=== PATIENT | female | born 1990 | race Caucasian/White ===

== ENCOUNTER 2017-03-01 07:11 | Emergency (ER) | payer MEDICAID, OTHER ==
[~2017-03-01] VITALS: Ht 162.6 cm; Wt 48.0 kg
[2017-03-01] VITALS (11 sets, daily range): BP systolic 86–131; BP diastolic 55–84; PULSE 64–128; RESP 12–18; TEMP 97.9–98.6; O2SAT 98–100
[~2017-03-01 07:11] MED LIST: HYDR50TA94 PO; SERO150T PO; XANA1TAB6 PO
[2017-03-01] MEDS ORDERED: NALOXONE HCL 0.4 MG/ML AMP IV PUSH ONE (07:30)
--- NOTE | 2017-03-01 07:52 | PD ---
HPI Chief Complaint: OD/ Ingestion Time Seen by Provider: 07:27 Travel History International Travel<30 days: No Contact w/Intl Traveler<30days: No Traveled to known affect area: No History of Present Illness HPI This is a 27-year-old female with unknown past history, presents here under Peres act. Patient apparently had been using alcohol and reported Xanax. She also reportedly scratched herself on the neck. He reported self mutilation to the neck. The patient reports she scratched herself. According to the [facility]' s deputy, she was awake and alert when he initially arrived on scene. When [facility] came on they cleared her. En route to the hospital she became more sleepy and somnolent. There is report that her boyfriend reported that she took Xanax right before the vp treasurer arrived. She chronically takes Xanax. [facility] Past Medical History Medical History: Unable to Obtain Blood Disorders: No Bipolar Disorder: Yes Cancer: No Diminished Hearing: No Gastrointestinal Disorders: Yes (GASTROPARESIS) Psychiatric: Yes (panic attacks) Immunizations Current: No Seizures: No Thyroid Disease: No Ulcer: No ?: Unknown Past Surgical History Surgical History: Unable to Obtain Section: Yes (twice) Other Surgery: No Social History Alcohol Use: Yes Tobacco Use: Yes Substance Use: Yes (on xanax, cocaine, and alcohol on 03/01/[address] [facility]) Allergies-Medications (Allergen,Severity, Reaction): Coded Allergies: metoclopramide (Unverified Allergy, Severe, FACIAL TWITCHING, 03/01/17) penicillin G (Unverified Adverse Reaction, Severe, DOESN'T KNOW, 03/01/17) Reported Meds & Prescriptions Reported Meds & Active Scripts Active Active Prescriptions or Reported Medications Unobtainable Review of Systems ROS Limitations: Clinical Condition, Intoxication (unable to obtain secondary to patient's intoxicated and somnolent state) Except as stated in HPI: all other systems reviewed are Neg Skin: Positive Other (scratches to the bilateral neck.) Physical Exam Narrative GENERAL: Developed well-nourished female in no acute respiratory distress. The patient is breathing at a rate of 12. Her O2 sats are 100%. SKIN: Focused skin assessment warm/dry. She has gradually is to her bilateral next. There is no deep lacerations. There is no active bleeding. There is dried blood noted to the bilateral lateral neck area. HEAD: Atraumatic. Normocephalic. EYES: Pupils equal and round. No scleral icterus. No injection or drainage. ENT: No nasal bleeding or discharge. Mucous membranes pink and moist. NECK: Trachea midline. No JVD. Scratches as above. CARDIOVASCULAR: Regular rate and rhythm. No murmur appreciated. RESPIRATORY: No accessory muscle use. Clear to auscultation. Breath sounds equal bilaterally. GASTROINTESTINAL: Abdomen soft, non-tender, nondistended. Hepatic and splenic margins not palpable. MUSCULOSKELETAL: No obvious deformities. No clubbing. No cyanosis. No edema. NEUROLOGICAL: Asleep in arousable to deep stimulation.. No obvious cranial nerve deficits. Motor grossly within normal limits. Slurred speech. Data Data Last Documented VS Vital Signs Date Time Temp Pulse Resp B/P (MAP) Pulse Ox O2 Delivery O2 Flow Rate FiO2 03/01/17 09:48 68 16 97/57 (70) 100 Nasal Cannula 2.00 03/01/17 07:46 97.9 Orders Orders Complete Blood Count With Diff (03/01/17 07:27) Comprehensive Metabolic Panel (03/01/17 07:27) Ed Urine Pregnancytest Poc (03/01/17 07:27) Electrocardiogram (03/01/17 07:27) Cath For Specimen (03/01/17 07:27) Psych Screen (03/01/17 07:27) Restraints Non-Violent MELVIN.Q3H (03/01/17 07:27) Drug Screen, Random Urine (03/01/17 07:27) Alcohol (Ethanol) (03/01/17 07:27) Salicylates (Aspirin) (03/01/17 07:27) Tylenol (Acetaminophen) (03/01/17 07:27) Naloxone Inj (Narcan Inj) (03/01/17 07:30) Tetanus/Diphtheria Tox Adult (Tetanus/Di (03/01/17 08:15) Labs Laboratory Tests Test 03/01/17 07:40 White Blood Count 6.8 TH/MM3 Red Blood Count 4.82 MIL/MM3 Hemoglobin 13.2 GM/DL Hematocrit 40.2 % Mean Corpuscular Volume 83.5 FL Mean Corpuscular Hemoglobin 27.3 PG Mean Corpuscular Hemoglobin Concent 32.7 % Red Cell Distribution Width 18.3 % Platelet Count 196 TH/MM3 Mean Platelet Volume 7.9 FL Neutrophils (%) (Auto) 66.9 % Lymphocytes (%) (Auto) 22.4 % Monocytes (%) (Auto) 4.7 % Eosinophils (%) (Auto) 5.0 % Basophils (%) (Auto) 1.0 % Neutrophils # (Auto) 4.6 TH/MM3 Lymphocytes # (Auto) 1.5 TH/MM3 Monocytes # (Auto) 0.3 TH/MM3 Eosinophils # (Auto) 0.3 TH/MM3 Basophils # (Auto) 0.1 TH/MM3 CBC Comment AUTO DIFF Differential Comment AUTO DIFF CONFIRMED Blood Urea Nitrogen 10 MG/DL Creatinine 0.96 MG/DL Random Glucose 81 MG/DL Total Protein 7.9 GM/DL Albumin 3.9 GM/DL Calcium Level 8.5 MG/DL Alkaline Phosphatase 90 U/L Aspartate Amino Transf (AST/SGOT) 21 U/L Alanine Aminotransferase (ALT/SGPT) 18 U/L Total Bilirubin 0.3 MG/DL Sodium Level 138 MEQ/L Potassium Level 3.9 MEQ/L Chloride Level 102 MEQ/L Carbon Dioxide Level 27.0 MEQ/L Anion Gap 9 MEQ/L Estimat Glomerular Filtration Rate 69 ML/MIN Salicylates Level 2.5 MG/DL Urine Opiates Screen NEG Acetaminophen Level LESS THAN 2.0 MCG/ML Urine Barbiturates Screen NEG Urine Amphetamines Screen NEG Urine Benzodiazepines Screen POS Urine Cocaine Screen POS Urine Cannabinoids Screen POS Ethyl Alcohol Level 46 MG/DL MDM Medical Decision Making Medical Screen Exam Complete: Yes Emergency Medical Condition: Yes Differential Diagnosis Substance-induced mood disorder versus electrolyte abnormality versus intoxication. Narrative Course 27-year-old female presents under Peres act after she reportedly was self mutilating herself by scratchiness of the neck. Patient has superficial scratches to her bilateral neck. There is no deep laceration that requires suturing. The patient's alcohol level is 46. Her urine tox is positive for benzodiazepines, cocaine, marijuana. Patient likely has substance induced mood disorder. She'll be medically cleared for psychiatric evaluation. Diagnosis Primary Impression: Substance induced mood disorder Additional Impressions: Polysubstance abuse bilateral neck abrasion/superficial lacerations medically clear Scripts Unable to Obtain Active Prescriptions or Reported Meds Nino Freitas MD Mar 01, 2017 07:52
[2017-03-01 07:56] LABS: AUTOMATED NEUTROPHIL # 4.6 TH/MM3 (1.8-7.7); BASOPHIL # 0.1 TH/MM3 (0-0.2); EOSINOPHIL # 0.3 TH/MM3 (0-0.4); HEMATOCRIT 40.2 % (35.0-46.0); HEMO FLAGS AUTO DIFF; LYMPH % 22.4 % (9.0-44.0); LYMPHOCYTE # 1.5 TH/MM3 (1.0-4.8); MEAN CELL VOLUME 83.5 FL (80.0-100.0); MEAN CORPUSCULAR HEMOGLOBIN 27.3 PG (27.0-34.0); MEAN CORPUSCULAR HGB CONC 32.7 % (32.0-36.0); MONO % 4.7 % (0.0-8.0); NEUT % 66.9 % (16.0-70.0); PLATELET COUNT 196 TH/MM3 (150-450); RED BLOOD COUNT 4.82 MIL/MM3 (4.00-5.30); RED CELL DISTRIBUTION WIDTH 18.3 % (11.6-17.2); WHITE BLOOD COUNT 6.8 TH/MM3 (4.0-11.0)
[2017-03-01 08:12] LABS: ANION GAP 9 MEQ/L (5-15)
[2017-03-01 08:14] LABS: ALKALINE PHOSPHATASE 90 U/L (45-117); ALT (GPT) 18 U/L (10-53); AST (GOT) 21 U/L (15-37); BLOOD UREA NITROGEN 10 MG/DL (7-18); CHLORIDE 102 MEQ/L (98-107); GLOMERULAR FILTRATION RATE 69 ML/MIN (>89); POTASSIUM 3.9 MEQ/L (3.5-5.1); SODIUM (NA) 138 MEQ/L (136-145); TOTAL BILIRUBIN ADULT 0.3 MG/DL (0.2-1.0)
[2017-03-01] MEDS ORDERED: TETANUS/DIPHTHERIA TOXOID ADULT 0.5 ML VIAL IM ONE (08:15)
[2017-03-01 08:16] LABS: ACETAMINOPHEN LESS THAN 2.0 MCG/ML (10.0-30.0); ALCOHOL 46 MG/DL (0-5)
[2017-03-01 08:58] LABS: SCAN/DIFF AUTO DIFF CONFIRMED
[2017-03-01] MEDS ORDERED: ALPR1TAB3 PO (12:55)
--- NOTE | 2017-03-01 14:18 | EKG ---
Date Performed: 03/01/2017 Time Performed: 07:31:03 PTAGE: 27 years EKG: Sinus rhythm NORMAL ECG NO PREVIOUS TRACING DOCTOR: Eloy Whiting Interpretating Date/Time 03/01/2017 14:16:49
[2017-03-01] MEDS ORDERED: OLANZapine IM 10 MG VIAL IM ONE (19:45)
[2017-03-01] MEDS ORDERED: diphenhydrAMINE HCL 50 MG/ML VIAL IM ONE (19:45)
--- NOTE | 2017-03-01 20:58 | PD ---
History of Present Illness Chief Complaint: OD/ Ingestion Time Seen by Provider: 19:00 Travel History International Travel<30 Days: No Contact w/Intl Traveler<30days: No Known affected area: No Legal Status Legal Status: [employer] History of Present Illness: History of Present Illness This serves as a face to face initial for restraints. This is a 27-year-old female with unknown past history, presents here under Peres act. Patient apparently had been using alcohol and reported Xanax. She also reportedly scratched herself on the neck. He reported self mutilation to the neck. The patient reports she scratched herself. According to the [facility]' s deputy, she was awake and alert when he initially arrived on scene. When [facility] came on they cleared her. En route to the hospital she became more sleepy and somnolent. There is report that her boyfriend reported that she took Xanax right before the needle molder arrived. She chronically takes Xanax. Patient is alert and oriented. Patient was intrusive and antagonizing other patients in J pod. required multiple verbal redirection. She was asked several times to move to her room while staff was attempting to deescalate another patient. patient refused to follow staff direction to remain in her room until evaluated for safety. Radha refused to follow staff redirection multiple times and was making verbal threats. She was escorted to her room and became agitated and attempting to kick and strike staff members. [facility] Past Medical History Medical History: Unable to Obtain Blood Disorders: No Bipolar Disorder: Yes Cancer: No Diminished Hearing: No Gastrointestinal Disorders: Yes (GASTROPARESIS) Psychiatric: Yes (panic attacks) Immunizations Current: No Seizures: No Thyroid Disease: No Ulcer: No ?: Unknown Past Surgical History Surgical History: Unable to Obtain Section: Yes (twice) Other Surgery: No Psychiatric History Psychiatric History Hx Psychiatric Treatment: unable to obtain Social History Hx Alcohol Use: Yes Hx Tobacco Use: Yes Hx Substance Use: Yes (on xanax, cocaine, and alcohol on 03/01/17 per [facility]) Allergies-Medications (Allergen,Severity, Reaction): Coded Allergies: metoclopramide (Unverified Allergy, Severe, FACIAL TWITCHING, 03/01/17) penicillin G (Unverified Adverse Reaction, Severe, DOESN'T KNOW, 03/01/17) Reported Meds & Prescriptions Reported Meds & Active Scripts Active Reported Alprazolam 1 Mg Tab 1 Mg PO BID PRN Review of Systems ROS Limitations: Combative Mental Status Examination Consciousness: Alert Appearance: Appropriate Speech: Unremarkable Thought Content: Other (unbale to test) Thought Associations: Other (unable to test) Language: Other (clear and logical ) Fund of Knowledge: Other (unable to test) Hallucination Type: Other (does not appear to be respondign to internal stimuli ) Attention and Concentration: Good Suicidal Plan/Intention Remark unable to asses Insight: Poor Judgment: Poor Affect: Oppositional Mood: Oppositional, Other (agitated) Motor Activity: Normal gait MDM Medical Decision Making Medical Record Reviewed: Yes Assessment/Plan This is a 27-year-old female with unknown past history, presents here under Peres act. Patient apparently had been using alcohol and reported Xanax. She also reportedly scratched herself on the neck. He reported self mutilation to the neck. The patient reports she scratched herself. According to the Human Resource Statistician' s deputy, she was awake and alert when he initially arrived on scene. When [facility] came on they cleared her. En route to the hospital she became more sleepy and somnolent. There is report that her boyfriend reported that she took Xanax right before the needle molder arrived. She chronically takes Xanax. patient required restraints for potential of harm to self and others. Orders Orders Complete Blood Count With Diff (03/01/17 07:27) Comprehensive Metabolic Panel (03/01/17 07:27) Ed Urine Pregnancytest Poc (03/01/17 07:27) Electrocardiogram (03/01/17 07:27) Cath For Specimen (03/01/17 07:27) Psych Screen (03/01/17 07:27) Restraints Non-Violent MELVIN.Q3H (03/01/17 07:27) Drug Screen, Random Urine (03/01/17 07:27) Alcohol (Ethanol) (03/01/17 07:27) Salicylates (Aspirin) (03/01/17 07:27) Tylenol (Acetaminophen) (03/01/17 07:27) Naloxone Inj (Narcan Inj) (03/01/17 07:30) Tetanus/Diphtheria Tox Adult (Tetanus/Di (03/01/17 08:15) Restraints Violent (03/01/17 19:35) Olanzapine Inj (Zyprexa Inj) (03/01/17 19:45) Diphenhydramine Inj (Benadryl Inj) (03/01/17 19:45) Results Vital Signs Date Time Temp Pulse Resp B/P (MAP) Pulse Ox O2 Delivery O2 Flow Rate FiO2 03/01/17 19:52 98.6 128 18 131/79 (96) 98 Room Air 03/01/17 16:10 68 16 103/60 (74) 98 Nasal Cannula 2.00 03/01/17 14:00 68 16 86/55 (65) 100 Room Air 03/01/17 12:24 64 16 97/65 (76) 100 Nasal Cannula 03/01/17 10:45 74 16 119/80 (93) 100 Nasal Cannula 2.00 03/01/17 09:48 68 16 97/57 (70) 100 Nasal Cannula 2.00 03/01/17 09:06 73 16 111/79 (90) 100 Nasal Cannula 2.00 03/01/17 08:00 73 13 98/60 (73) 100 Nasal Cannula 03/01/17 07:46 97.9 74 12 96/56 (69) 100 Nasal Cannula 2.00 03/01/17 07:20 74 12 104/64 (77) 98 Laboratory Tests Test 03/01/17 07:40 White Blood Count 6.8 Red Blood Count 4.82 Hemoglobin 13.2 Hematocrit 40.2 Mean Corpuscular Volume 83.5 Mean Corpuscular Hemoglobin 27.3 Mean Corpuscular Hemoglobin Concent 32.7 Red Cell Distribution Width 18.3 Platelet Count 196 Mean Platelet Volume 7.9 Neutrophils (%) (Auto) 66.9 Lymphocytes (%) (Auto) 22.4 Monocytes (%) (Auto) 4.7 Eosinophils (%) (Auto) 5.0 Basophils (%) (Auto) 1.0 Neutrophils # (Auto) 4.6 Lymphocytes # (Auto) 1.5 Monocytes # (Auto) 0.3 Eosinophils # (Auto) 0.3 Basophils # (Auto) 0.1 CBC Comment AUTO DIFF Differential Comment AUTO DIFF CONFIRMED Blood Urea Nitrogen 10 Creatinine 0.96 Random Glucose 81 Total Protein 7.9 Albumin 3.9 Calcium Level 8.5 Alkaline Phosphatase 90 Aspartate Amino Transf (AST/SGOT) 21 Alanine Aminotransferase (ALT/SGPT) 18 Total Bilirubin 0.3 Sodium Level 138 Potassium Level 3.9 Chloride Level 102 Carbon Dioxide Level 27.0 Anion Gap 9 Estimat Glomerular Filtration Rate 69 Salicylates Level 2.5 Urine Opiates Screen NEG Acetaminophen Level LESS THAN 2.0 Urine Barbiturates Screen NEG Urine Amphetamines Screen NEG Urine Benzodiazepines Screen POS Urine Cocaine Screen POS Urine Cannabinoids Screen POS Ethyl Alcohol Level 46 Diagnosis Primary Impression: Substance induced mood disorder Additional Impressions: Polysubstance abuse bilateral neck abrasion/superficial lacerations medically clear Problem Qualifiers Odalis Mckenna [facility] Mar 01, 2017 20:58
--- NOTE | 2017-03-02 00:46 | PD ---
Physical Exam Date Seen by Provider: Mar 02, 2017 Time Seen by Provider: 00:45 Narrative For full history and physical examination please see previous provider's notes. Data Data Last Documented VS Vital Signs Date Time Temp Pulse Resp B/P (MAP) Pulse Ox O2 Delivery O2 Flow Rate FiO2 03/01/17 22:46 86 16 128/84 (99) 98 Room Air 03/01/17 19:52 98.6 03/01/17 16:10 2.00 Orders Orders Complete Blood Count With Diff (03/01/17 07:27) Comprehensive Metabolic Panel (03/01/17 07:27) Ed Urine Pregnancytest Poc (03/01/17 07:27) Electrocardiogram (03/01/17 07:27) Cath For Specimen (03/01/17 07:27) Psych Screen (03/01/17 07:27) Restraints Non-Violent MELVIN.Q3H (03/01/17 07:27) Drug Screen, Random Urine (03/01/17 07:27) Alcohol (Ethanol) (03/01/17 07:27) Salicylates (Aspirin) (03/01/17 07:27) Tylenol (Acetaminophen) (03/01/17 07:27) Naloxone Inj (Narcan Inj) (03/01/17 07:30) Tetanus/Diphtheria Tox Adult (Tetanus/Di (03/01/17 08:15) Restraints Violent (03/01/17 19:35) Olanzapine Inj (Zyprexa Inj) (03/01/17 19:45) Diphenhydramine Inj (Benadryl Inj) (03/01/17 19:45) Labs Laboratory Tests Test 03/01/17 07:40 White Blood Count 6.8 TH/MM3 Red Blood Count 4.82 MIL/MM3 Hemoglobin 13.2 GM/DL Hematocrit 40.2 % Mean Corpuscular Volume 83.5 FL Mean Corpuscular Hemoglobin 27.3 PG Mean Corpuscular Hemoglobin Concent 32.7 % Red Cell Distribution Width 18.3 % Platelet Count 196 TH/MM3 Mean Platelet Volume 7.9 FL Neutrophils (%) (Auto) 66.9 % Lymphocytes (%) (Auto) 22.4 % Monocytes (%) (Auto) 4.7 % Eosinophils (%) (Auto) 5.0 % Basophils (%) (Auto) 1.0 % Neutrophils # (Auto) 4.6 TH/MM3 Lymphocytes # (Auto) 1.5 TH/MM3 Monocytes # (Auto) 0.3 TH/MM3 Eosinophils # (Auto) 0.3 TH/MM3 Basophils # (Auto) 0.1 TH/MM3 CBC Comment AUTO DIFF Differential Comment AUTO DIFF CONFIRMED Blood Urea Nitrogen 10 MG/DL Creatinine 0.96 MG/DL Random Glucose 81 MG/DL Total Protein 7.9 GM/DL Albumin 3.9 GM/DL Calcium Level 8.5 MG/DL Alkaline Phosphatase 90 U/L Aspartate Amino Transf (AST/SGOT) 21 U/L Alanine Aminotransferase (ALT/SGPT) 18 U/L Total Bilirubin 0.3 MG/DL Sodium Level 138 MEQ/L Potassium Level 3.9 MEQ/L Chloride Level 102 MEQ/L Carbon Dioxide Level 27.0 MEQ/L Anion Gap 9 MEQ/L Estimat Glomerular Filtration Rate 69 ML/MIN Salicylates Level 2.5 MG/DL Urine Opiates Screen NEG Acetaminophen Level LESS THAN 2.0 MCG/ML Urine Barbiturates Screen NEG Urine Amphetamines Screen NEG Urine Benzodiazepines Screen POS Urine Cocaine Screen POS Urine Cannabinoids Screen POS Ethyl Alcohol Level 46 MG/DL [facility] Medical Record Reviewed: Yes Supervised Visit with MIGUELITO: No Narrative Course Patient initially presented to the emergency Department under Peres act for psychiatric evaluation. She was seen and evaluated by an emergency department physician and then medically cleared. She was then evaluated by psychiatric nurse practitioner. At this time patient will be discharged to the [facility]. Diagnosis Primary Impression: Substance induced mood disorder Additional Impressions: Polysubstance abuse bilateral neck abrasion/superficial lacerations medically clear Referrals: [facility] Patient Instructions: General Instructions Additional Instruction: Avoid illicit drug use Follow-up with her primary doctor Med/Other Pt SpecificInfo: No Change to Meds Disposition: 64 DISC TO [facility] Condition: Stable Haley Ha Ann [employer] Mar 02, 2017 00:46
== END 2017-03-02 01:33 ==
LOC: NEPC 07:11 → NEPJ 03-02 01:33
DX: F19.14 Other psychoactive substance abuse with psychoactive substance-induced mood disorder (principal); S10.91XA Abrasion of unspecified part of neck, initial encounter; K31.84 Gastroparesis; F31.9 Bipolar disorder, unspecified; Y28.8XXA Contact with other sharp object, undetermined intent, initial encounter; Z72.0 Tobacco use; Z23 Encounter for immunization
CPT/HCPCS: 80053; 80307; 84703; 85025; 90471; 90714; 93005; 96372; 96374; 99285; J1200; J2310

== ENCOUNTER 2017-05-27 15:14 | Emergency (ER) | payer OTHER ==
[~2017-05-27] VITALS: Ht 152.4 cm; Wt 45.0 kg
[~2017-05-27 15:14] MED LIST changes: +ALPR1TAB3 PO; -HYDR50TA94 PO; -SERO150T PO; -XANA1TAB6 PO
[2017-05-27 15:24] VITALS: BP 135/95; PULSE 63; RESP 18; O2SAT 100
--- NOTE | 2017-05-27 15:30 | PD ---
HPI Chief Complaint: PERES ACT/PSYCH Time Seen by Provider: 15:27 Travel History International Travel<30 days: No Contact w/Intl Traveler<30days: No Traveled to known affect area: No History of Present Illness HPI 27-year-old female brought in by police under a Peres act. Patient states she was arrested 2 days ago, and spent the last 2 days in longterm. Patient states history of narcotic abuse, with recent abdominal discomfort which she attributes to withdrawal. When she was medically cleared for incarceration, she was told she was . Patient states however her last period was May 02 to the . She currently denies any abdominal pain or vaginal bleeding. She was taken to [facility] for continued detox, but when they heard she was , and may have attempted hanging herself she was brought here for medical clearance and psychiatric evaluation. Patient however denies suicidal or homicidal ideation at this time. She has no significant pain complaints at this time. Patient is allergic to penicillin and metoclopramide. PFSH Past Medical History Blood Disorders: No Bipolar Disorder: Yes Cancer: No Diminished Hearing: No Gastrointestinal Disorders: Yes (GASTROPARESIS) Psychiatric: Yes (panic attacks) Immunizations Current: No Seizures: No Thyroid Disease: No Ulcer: No Past Surgical History Section: Yes (twice) Other Surgery: No Social History Alcohol Use: Yes Tobacco Use: Yes Substance Use: Yes (on xanax, cocaine, and alcohol on 03/01/17 per senior technical project manager) Allergies-Medications (Allergen,Severity, Reaction): Coded Allergies: metoclopramide (Unverified Allergy, Severe, FACIAL TWITCHING, 03/01/17) penicillin G (Unverified Adverse Reaction, Severe, DOESN'T KNOW, 03/01/17) Reported Meds & Prescriptions Reported Meds & Active Scripts Active Reported Alprazolam 1 Mg Tab 1 Mg PO BID PRN Review of Systems Except as stated in HPI: all other systems reviewed are Neg General / Constitutional: No: Fever Eyes: No: Visual changes HENT: No: Headaches Cardiovascular: No: Chest Pain or Discomfort Respiratory: No: Shortness of Breath Gastrointestinal: No: Nausea, Vomiting, Diarrhea, Abdominal Pain Genitourinary: No: Dysuria Musculoskeletal: No: Pain Skin: No Rash Neurologic: No: Weakness Psychiatric: Positive: Substance Abuse, No: Depression, Suicidal Ideations, Homicidal Ideation Endocrine: No: Polydipsia Hematologic/Lymphatic: No: Easy Bruising Physical Exam Narrative GENERAL: Patient appears in no obvious distress. SKIN: Warm and dry. Patient is notable old puncture wounds consistent with her IV drug history. Times of cellulitis or other issues at this time. HEAD: Atraumatic. Normocephalic. EYES: Pupils equal and round. No scleral icterus. No injection or drainage. ENT: No nasal bleeding or discharge. Mucous membranes pink and moist. Pharynx is clear. Airway is patent. NECK: Trachea midline. Supple and nontender. CARDIOVASCULAR: Regular rate and rhythm. RESPIRATORY: No accessory muscle use. Clear to auscultation. Breath sounds equal bilaterally. GASTROINTESTINAL: Abdomen soft, non-tender, nondistended. Hepatic and splenic margins not palpable. MUSCULOSKELETAL: Extremities without clubbing, cyanosis, or edema. No obvious deformities. NEUROLOGICAL: Awake and alert. No obvious cranial nerve deficits. Motor grossly within normal limits. Five out of 5 muscle strength in the arms and legs. Normal speech. PSYCHIATRIC: Appropriate mood and affect; insight and judgment normal. Data Data Last Documented VS Vital Signs Date Time Temp Pulse Resp B/P (MAP) Pulse Ox O2 Delivery O2 Flow Rate FiO2 05/27/17 15:24 63 18 135/95 (108) 100 Orders Orders Complete Blood Count With Diff (05/27/17 15:36) Comprehensive Metabolic Panel (05/27/17 15:36) Urinalysis - C+S If Indicated (05/27/17 15:36) Ed Urine Pregnancytest Poc (05/27/17 15:36) Beta Hcg (Quant/Titer) (05/27/17 15:36) Psych Screen (05/27/17 15:36) Drug Screen, Random Urine (05/27/17 15:36) Labs Laboratory Tests Test 05/27/17 15:45 White Blood Count 6.6 TH/MM3 Red Blood Count 4.55 MIL/MM3 Hemoglobin 13.3 GM/DL Hematocrit 39.6 % Mean Corpuscular Volume 87.1 FL Mean Corpuscular Hemoglobin 29.3 PG Mean Corpuscular Hemoglobin Concent 33.7 % Red Cell Distribution Width 14.0 % Platelet Count 216 TH/MM3 Mean Platelet Volume 8.1 FL Neutrophils (%) (Auto) 53.0 % Lymphocytes (%) (Auto) 38.9 % Monocytes (%) (Auto) 6.2 % Eosinophils (%) (Auto) 1.4 % Basophils (%) (Auto) 0.5 % Neutrophils # (Auto) 3.5 TH/MM3 Lymphocytes # (Auto) 2.6 TH/MM3 Monocytes # (Auto) 0.4 TH/MM3 Eosinophils # (Auto) 0.1 TH/MM3 Basophils # (Auto) 0.0 TH/MM3 CBC Comment DIFF FINAL Differential Comment Urine Color LIGHT-YELLOW Urine Turbidity HAZY Urine pH 6.0 Urine Specific [place] 1.008 Urine Protein NEG mg/dL Urine Glucose (UA) NEG mg/dL Urine Ketones NEG mg/dL Urine Occult Blood NEG Urine Nitrite NEG Urine Bilirubin NEG Urine Urobilinogen LESS THAN 2.0 MG/DL Urine Leukocyte Esterase NEG Urine RBC 1 /hpf Urine WBC 1 /hpf Urine Squamous Epithelial Cells 7 /hpf Urine Bacteria RARE /hpf Urine Mucus FEW /lpf Microscopic Urinalysis Comment CULT NOT INDICATED Blood Urea Nitrogen 7 MG/DL Creatinine 0.74 MG/DL Random Glucose 84 MG/DL Total Protein 6.9 GM/DL Albumin 3.6 GM/DL Calcium Level 8.6 MG/DL Alkaline Phosphatase 64 U/L Aspartate Amino Transf (AST/SGOT) 31 U/L Alanine Aminotransferase (ALT/SGPT) 44 U/L Total Bilirubin 0.2 MG/DL Sodium Level 138 MEQ/L Potassium Level 3.6 MEQ/L Chloride Level 103 MEQ/L Carbon Dioxide Level 30.3 MEQ/L Anion Gap 5 MEQ/L Estimat Glomerular Filtration Rate 93 ML/MIN Human Chorionic Gonadotropin, Quant 393 MIU/ML [facility] Medical Decision Making Medical Screen Exam Complete: Yes Emergency Medical Condition: Yes Differential Diagnosis History of IV drug use. Diagnosis of early . Need for detox. Narrative Course Patient is medically stable at time of exam. Psychiatric labs ordered including a urine which is positive. Serum hCG is added. Patient is discussed with Dr. Briceno. Patient is felt to be medically stable for psychiatric evaluation. Diagnosis Primary Impression: Medical clearance for psychiatric admission Additional Impression: Qualified Codes: Z3A.01 - Less than 8 weeks gestation of Condition: Stable Aram Faust May 27, 2017 15:30
[2017-05-27 16:30] LABS: AUTOMATED NEUTROPHIL # 3.5 TH/MM3 (1.8-7.7); BASOPHIL % 0.5 % (0.0-2.0); EOSINOPHIL # 0.1 TH/MM3 (0-0.4); EOSINOPHIL % 1.4 % (0.0-4.0); HEMATOCRIT 39.6 % (35.0-46.0); HEMOGLOBIN 13.3 GM/DL (11.6-15.3); LYMPH % 38.9 % (9.0-44.0); LYMPHOCYTE # 2.6 TH/MM3 (1.0-4.8); MEAN CELL VOLUME 87.1 FL (80.0-100.0); MEAN CORPUSCULAR HEMOGLOBIN 29.3 PG (27.0-34.0); MEAN CORPUSCULAR HGB CONC 33.7 % (32.0-36.0); MEAN PLATELET VOLUME 8.1 FL (7.0-11.0); MONO % 6.2 % (0.0-8.0); MONOCYTE # 0.4 TH/MM3 (0-0.9); PLATELET COUNT 216 TH/MM3 (150-450); RED BLOOD COUNT 4.55 MIL/MM3 (4.00-5.30); WHITE BLOOD COUNT 6.6 TH/MM3 (4.0-11.0)
[2017-05-27 16:43] LABS: ALBUMIN 3.6 GM/DL (3.4-5.0); ALT (GPT) 44 U/L (10-53); AST (GOT) 31 U/L (15-37); BICARBONATE 30.3 MEQ/L (21.0-32.0); BLOOD UREA NITROGEN 7 MG/DL (7-18); CALCIUM 8.6 MG/DL (8.5-10.1); CHLORIDE 103 MEQ/L (98-107); CREATININE 0.74 MG/DL (0.50-1.00); GLOMERULAR FILTRATION RATE 93 ML/MIN (>89); GLUCOSE,RANDOM 84 MG/DL (74-106); SODIUM (NA) 138 MEQ/L (136-145)
[2017-05-27 16:46] LABS: ALKALINE PHOSPHATASE 64 U/L (45-117); TOTAL BILIRUBIN ADULT 0.2 MG/DL (0.2-1.0); TOTAL PROTEIN 6.9 GM/DL (6.4-8.2)
[2017-05-27 16:57] LABS: BACTERIA, URINE RARE /hpf; BILIRUBIN, URINE NEG (NEG); BLOOD, URINE NEG (NEG); GLUCOSE,URINE NEG (NEG); KETONE, URINE NEG (NEG); MUCUS URINE FEW /lpf (OCC); NITRITE,URINE NEG (NEG); SQUAMOUS EPITHELIAL CELL URINE 7 /hpf (0-5); URINE COLOR LIGHT-YELLOW (YELLW/STRAW); URINE LEUKOCYTE ESTERASE NEG (NEG)
[2017-05-27 23:46] VITALS: BP 123/64; PULSE 78; RESP 16; TEMP 98.4; O2SAT 99
[2017-05-28 06:46] VITALS: BP 114/65; PULSE 90; RESP 17; TEMP 98.8; O2SAT 99
[2017-05-28 09:20] VITALS: BP 117/71; PULSE 95; RESP 18; O2SAT 100
--- NOTE | 2017-05-28 10:58 | MB ---
cc: RAMSEY CHAVES DATE OF CONSULTATION: 05/28/2017 PHYSICIAN REQUESTING CONSULTATION: Emergency department REASON FOR CONSULTATION Peres Act HISTORY OF PRESENT ILLNESS Ms. Major is a 27-year-old female with a reported history of anxiety and depression who presents under a [facility] Act from [facility], alleging that the patient has scratch solomon on neck and reports she tried to hang herself. Reviewing the electronic medical record, I note that the patient was seen in February of this year by nurse practitioner, Bala, in the ED when she presented under a Peres Act and scratched her neck. She apparently required restraints at that time. On this occasion, the patient is and her urine toxicology is positive for benzodiazepines and cannabinoids. The patient is seen and examined. Chart reviewed. Case discussed with nurse in the J pod. On my examination today, the patient reports that she has been detoxifying from her opiate and benzodiazepine medications and was feeling particularly desperate last . She says that she tried to hang herself and cut herself superficially on her neck with a journal box inspector. She is tearful and dysphoric and says that she feels "lost, so lost." She also says that her "patience is running so thin." She denies any suicidal or homicidal ideation but it is not clear that she is reliable to contract for safety. She denies any audiovisual hallucinations. No delusional material elicited. No hypomanic or manic symptoms presently. The remainder of the psychiatric ROS is negative. PAST PSYCHIATRIC HISTORY The patient reports a history of anxiety and depression. She follows a [facility]. She denies a history of psychiatric admissions. She has been [place] A[facility] in the past. She endorses a history of suicide attempt by overdose prior to the suicide attempt last . FAMILY HISTORY The patient endorses a family history of depression and anxiety. Her mother may have also had schizophrenia. CHEMICAL DEPENDENCY HISTORY: The patient reports that she has been using her ex-'s Suboxone as well as Xanax. SOCIAL HISTORY The patient lives with her ex-. She has a 9-year-old and 11-year-old daughter. She is . She has a 9th grade education. She does not work. She was recently released from prison following incarceration for charges of attempted burglary with a deadly weapon. She denies any access to guns or firearms. PAST MEDICAL HISTORY Includes a history of gastroparesis. MEDICATIONS The patient reports she takes no medications presently. ALLERGIES Metoclopramide and penicillin G. REVIEW OF SYSTEMS Some rhinorrhea but otherwise no reported physical complaints. PHYSICAL EXAMINATION On my examination today, the temperature is 98.8, pulse 95, respirations 18, blood pressure 117/71, pulse oximetry 100% on room air. Physical examination completed by the ED provider. On my examination today, the patient appears to be in no acute physical distress. No motor abnormalities noted. LABORATORY Reviewed: CBC is unremarkable. CMP is unremarkable. Beta hCG is 393. Urine toxicology positive for benzos and cannabinoids. Urinalysis is fairly bland. MENTAL STATUS EXAM The patient is in hospital attire. She is somewhat disheveled. I do note superficial scratches on her neck. She is awake, alert and oriented x4. No motor abnormalities noted. Speech is within normal limits for rate, tone and volume. Language and fund of knowledge average. Focusing concentration intact. Memory grossly intact on clinical exam. Mood is dysphoric and affect is restricted and consistent with stated mood. Thought process linear. No loosening of associations. No delusions elicited. Denies audiovisual hallucinations. Denies suicidal or homicidal ideation but recently endeavor to hang herself and cut herself with a journal box inspector. Insight and judgment are poor. ASSESSMENT/PLAN 1. Adjustment disorder with disturbance of emotions and conduct, F43.25 2. Polysubstance dependence, F19.20 This is a 27-year-old female with psychiatric history as detailed above who presents to the psychiatric emergency room under a Peres Act. On my evaluation today, the patient remains tearful and dysphoric and admits to trying to hang herself and cut herself with a journal box inspector last . She denies suicidal ideation now but I fear that her insight and judgment are poor and that she remains at elevated risk for self-harm. I think it is prudent to continue the Peres Act at this juncture. Our inpatient psychiatric unit is presently full and so I have instructed the nurse in the psychiatric emergency room to refer the patient for inpatient psychiatric services elsewhere. Nurse reports to me that accepting facilities of requesting heart tones prior to transfer and I have ordered these. Recommend patient be retained in the J-pod until she can be transferred to accepting inpatient unit. Thank you very much for this consultation. Ramsey Chaves DC/ELLIS /9:54 AM /10:23 AM MICHELE
[2017-05-28 12:25] VITALS: BP 117/71; PULSE 95; RESP 18; O2SAT 100
== END 2017-05-28 12:59 ==
LOC: NEPD 15:14 → NEPJ 05-28 12:59
DX: O99.341 Other mental disorders complicating pregnancy, first trimester (principal); F43.25 Adjustment disorder with mixed disturbance of emotions and conduct; O99.321 Drug use complicating pregnancy, first trimester; F19.20 Other psychoactive substance dependence, uncomplicated; O99.331 Smoking (tobacco) complicating pregnancy, first trimester; Z3A.01 Less than 8 weeks gestation of pregnancy
CPT/HCPCS: 80053; 80307; 81001; 84702; 84703; 85025; 99285